=== PATIENT | male | born 2000 | race Two or more races ===

== ENCOUNTER 2021-02-05 08:01 | Emergency (ER) | payer OTHER ==
[~2021-02-05] VITALS: Ht 172.7 cm; Wt 75.3 kg
== END 2021-02-05 11:39 | disposition home or self-care (01) ==
LOC: ER 08:01
DX: S91.241A Puncture wound with foreign body of right great toe with damage to nail, initial encounter (principal); W22.8XXA Striking against or struck by other objects, initial encounter; Y93.89 Activity, other specified; Y92.89 Other specified places as the place of occurrence of the external cause; Y99.8 Other external cause status